=== PATIENT | male | born 1980 | race Caucasian/White ===

== ENCOUNTER 2023-03-28 12:09 | Emergency (ER) | payer OTHER ==
[~2023-03-28] VITALS: Ht 190.5 cm; Wt 108.9 kg
[~2023-03-28 12:09] MED LIST: AMOX500 PO; GABA300 PO; MECL25 PO
[2023-03-28 12:14] VITALS: BP 152/92
[2023-03-28 13:50] LABS: BASOPHILS ABSOLUTE AUTO 0.05 K/mm3 (0.00-0.23); BASOPHILS PERCENT AUTO 0 % (0-2); EOSINOPHILS ABSOLUTE AUTO 0.01 K/mm3 (0.00-0.68); EOSINOPHILS PERCENT AUTO 0 % (0-6); Hematocrit 46.4 % (37.0-53.0); Hemoglobin 15.6 g/dL (13.5-17.5); IMMATURE GRAN ABSOLUTE AUTO 0.07 K/mm3 (0.00-0.10); IMMATURE GRAN PERCENT AUTO 0 % (0-1); LYMPHOCYTES ABSOLUTE AUTO 0.64 K/mm3 (0.84-5.20); LYMPHOCYTES PERCENT AUTO 4 % (21-46); MONOCYTES ABSOLUTE AUTO 0.75 K/mm3 (0.16-1.47); MONOCYTES PERCENT AUTO 5 % (4-13); Mean Corpuscular HGB 29.4 pg (26.0-34.0); Mean Corpuscular HGB Conc 33.6 g/dL (31.5-36.5); Mean Corpuscular Volume 88 fL (80-100); Mean Platelet Volume 8.8 fL (9.1-12.4); NEUTROPHILS ABSOLUTE AUTO 14.56 K/mm3 (1.96-9.15); NEUTROPHILS PERCENT AUTO 91 % (41-73); Platelet Count 235 K/mm3 (150-400); RDW Coefficient Variation 13.1 % (11.7-14.2); RDW Standard Deviation 41.7 fL (35.1-46.3); White Blood Cell Count 16.08 K/mm3 (4.00-11.30)
== END 2023-03-28 15:40 | disposition short-term general hospital (02) ==
LOC: ER 12:09
PROVIDERS: Emergency Medicine
DX: S06.5X9A Traumatic subdural hemorrhage with loss of consciousness of unspecified duration, initial encounter (principal); S06.6X9A Traumatic subarachnoid hemorrhage with loss of consciousness of unspecified duration, initial encounter; S12.600A Unspecified displaced fracture of seventh cervical vertebra, initial encounter for closed fracture; S12.500A Unspecified displaced fracture of sixth cervical vertebra, initial encounter for closed fracture; S22.031A Stable burst fracture of third thoracic vertebra, initial encounter for closed fracture; S22.051A Stable burst fracture of T5-T6 vertebra, initial encounter for closed fracture; S22.31XA Fracture of one rib, right side, initial encounter for closed fracture; W22.8XXA Striking against or struck by other objects, initial encounter; S02.42XA Fracture of alveolus of maxilla, initial encounter for closed fracture
CPT/HCPCS: 70450; 70486; 71260; 72125; 85025; 86850; 86900; 86901; 90471; 90702; 90715; 96365; 96375; 99285-25; J0690; J1170; J2270; J2405; L0160; Q9967

== ENCOUNTER 2025-05-11 07:18 | Day surgery (SDC) | payer OTHER ==
[~2025-05-11] VITALS: Ht 188 cm; Wt 113.3 kg
[2025-05-11] VITALS (68 sets, daily range): BP systolic 117–152; BP diastolic 53–107
[~2025-05-11 07:18] MED LIST changes: +AZMIRO200 MG/1 M IM; +DEBROX KIDS EAR30 ML; +FAMO20 PO
--- NOTE | 2025-05-11 07:40 | NUR ---
Pre-Op teaching done. Pt verbalizes understanding. Ambulatory in Day Surgery. Patient confirms NPO status and agrees with scheduled surgery. Patient States Post-Procedure ride home has been arranged. History, Chart, Medications and Allergies reviewed before start of procedure.
--- NOTE | 2025-05-11 07:57 | NUR ---
PT STATES HE HAS A ZIN POUCH THIS AM AND SPIT IT OUT UP ARRIVAL TO DAY SURGERY. DR. LOCKETT INFORMED AND STATES OK TO PROCEED.
[2025-05-11] MEDS ORDERED: Benzocaine Oral Spray 0.5ML UD ONE (09:41)
[2025-05-11] MEDS ORDERED: Midazolam HCl 1MG / ML 2ML Vial ONE (09:49)
--- NOTE | 2025-05-11 10:10 | NUR ---
05/11/25 1010 Krishna Pérez CONFIRMED AND REVIEWED H&P, MEDCICATIONS, ALLERGIES, MEDICAL HISTORY, RESPIRATORY HISTORY, VITAL SIGNS, 3-LEAD EKG, CONSENTS, AND PHYSICIAN ORDERS. PATIENT CONFIRMS NPO STATUS AND AGREES WITH SCHEDULED PROCEDURE. MONITOR INTACT WITH CONTINUOUS PULSE OXIMETRY, CAPNOGRAPHY, 3-LEAD EKG, INTERMITTENT BP. SUPPLEMENTAL O2 TO BE TITRATED THROUGHOUT PROCEDURE TO MAINTAIN O2 SATURATION ABOVE 90%. PATIENT DETERMINED TO BE ASA APPROPRIATE FOR PROPOFOL SEDATION PRIOR TO START OF PROCEDURE BY DR. MASON. ANESTHESIA CONSULT REQUESTED PRIOR TO START OF PROCEDURE DUE TO MINIMAL NECK EXTENSION DUE TO CERVICAL SURGERY WITH RODS PLACED IN NECK. STOP BANG OF 5 AND HX OF DRUG AND ALCOHOL USE. DR CRUZ CONSULTED AND APPROVED CONTINUING WITH NURSE SEDATION. DENTURES REMOVED AND PLACED IN CUP AT BEDSIDE. PT CAME TO DAY SURGERY WITH ZYN POUCH IN MOUTH. DR Nelson MADE AWARE AND OKAY WITH CONTINUING WITH PROCEDURE.
--- NOTE | 2025-05-11 12:34 | NUR ---
Patient States Post-Procedure ride home has been arranged. Discharged via wheelchair to private car for ride home. Discharge instructions reviewed with patient. Patient verbalizes understanding. Copy given to patient to take home.
== END 2025-05-11 23:00 | disposition home or self-care (01) ==
LOC: ORSCMMR 07:18 → ORD 08:30 → ORSCMMR 08:30 → ORD 12:30 → ORSCMMR 23:00
PROVIDERS: Family Medicine
PROC: 0DBH8ZX Excision of Cecum, Via Natural or Artificial Opening Endoscopic, Diagnostic (ICD-10-PCS; principal; 2025-05-11 08:30)
PROC: 0DB48ZX Excision of Esophagogastric Junction, Via Natural or Artificial Opening Endoscopic, Diagnostic (ICD-10-PCS; principal; 2025-05-11 08:30)
PROC: 0DBL8ZX Excision of Transverse Colon, Via Natural or Artificial Opening Endoscopic, Diagnostic (ICD-10-PCS; principal; 2025-05-11 08:30)
PROC: 0DBP8ZX Excision of Rectum, Via Natural or Artificial Opening Endoscopic, Diagnostic (ICD-10-PCS; principal; 2025-05-11 08:30)
PROC: 0DB78ZX Excision of Stomach, Pylorus, Via Natural or Artificial Opening Endoscopic, Diagnostic (ICD-10-PCS; principal; 2025-05-11 08:30)
DX: K92.1 Melena (principal); D12.3 Benign neoplasm of transverse colon; D12.0 Benign neoplasm of cecum; K62.1 Rectal polyp; R10.13 Epigastric pain; K29.70 Gastritis, unspecified, without bleeding; K44.9 Diaphragmatic hernia without obstruction or gangrene; K29.80 Duodenitis without bleeding; Z79.899 Other long term (current) drug therapy; K21.9 Gastro-esophageal reflux disease without esophagitis; I12.9 Hypertensive chronic kidney disease with stage 1 through stage 4 chronic kidney disease, or unspecified chronic kidney disease; N18.31 Chronic kidney disease, stage 3a
CPT/HCPCS: 88305; 88312; 88342; A9270; J2250; J2704; J7120